=== PATIENT | female | born 1955 | race Caucasian/White ===

== ENCOUNTER → 2017-06-17 10:00 | Outpatient (CLI) | payer OTHER, SELFPAY ==
--- NOTE | 2017-06-17 10:04 | RAD_ITS ---
STUDY: X-RAY - LEFT HAND, ATTENTION FOURTH FINGER REASON FOR EXAM: Female, 62 years old. Pain following injury. TECHNIQUE: 3 view(s) of the finger were obtained. COMPARISON: None. FINDINGS: Normal metacarpal head. Normal metacarpophalangeal joint. Normal proximal phalanx. Normal middle phalanx. Normal distal phalanx. Normal proximal interphalangeal joint. Normal distal interphalangeal joint. RAD/Finger(s) Min 2 Views IMPRESSION: Normal x-ray examination of the finger. Electronically Signed: Harris Maritn MD at 10:36 EDT Tel [phone], Service support ,
== END ==
PROVIDERS: Visit Provider Physician Assistant Surgical
DX: S60.222A Contusion of left hand, initial encounter (principal); S60.00XA Contusion of unspecified finger without damage to nail, initial encounter
CPT/HCPCS: 73140

== ENCOUNTER 2019-01-18 08:51 | Emergency (ER) | payer OTHER, SELFPAY ==
[2018-04-03 10:09] VITALS: BMI 21.5
[2019-01-18 08:53] VITALS: BP 160/70; PULSE 79; RESP 16; TEMP 36.4; O2SAT 100; BMI 22.1
--- NOTE | 2019-01-18 09:05 | ED.DCSUM_ITS ---
- ER Visit Summary Date of Service: 01/18/19 Chief Complaint: Left thumb laceration History of Present Illness: The patient is a 64 F presenting with left thumb laceration. This occurred yesterday at work. She states she accidentally cut her left thumb with a knife. She was able to stop the bleeding. She is right- handed. Last tetanus is unknown. No other injuries. Physical Examination: Vitals are stable. Patient is afebrile. Alert no acute distress. HEENT exam is unremarkable. Neck is supple. Lungs are clear and equal bilaterally. Heart is regular rate and rhythm. Extremities 0.5 cm laceration distal left thumb, tendon function intact. Normal cap refill Skin is warm and dry. No focal neurologic deficit. Remainder of exam is unremarkable. Emergency Department Course and Treatment: Wound was irrigated. Closed with Dermabond. Dressing was applied. She was given tetanus IM. Advised to follow- up with corporate care as needed. Advised return to ED if worsening complaints. Disposition: Discharged home Impression: Left thumb laceration, laceration repair This note was generated with [employer] dictation software. It may contain incorrect words, spelling, and punctuation that were not noted in review of the chart prior to signing ED Disposition - Plan for ED Patient: Instructions: LACERATION, Hand Referrals: [facility] [GROUP OF PHYSICIANS] -
[2019-01-18] MEDS: Diphth,Pertuss(Acell),Tet Vac 0.5 ML Vial IM (09:20)
== END 2019-01-18 09:53 | disposition home or self-care (01) ==
LOC: ED 09:27
PROVIDERS: Emergency Provider Emergency Medicine
DX: S61.012A Laceration without foreign body of left thumb without damage to nail, initial encounter (principal); W26.0XXA Contact with knife, initial encounter; Y93.9 Activity, unspecified; Y92.9 Unspecified place or not applicable; Z23 Encounter for immunization
CPT/HCPCS: 12001; 90471; 90715; 99283

== ENCOUNTER 2020-04-20 22:00 | Emergency (ER) | payer OTHER, SELFPAY ==
[2019-01-24 12:51] VITALS: BMI 22.1
[2020-04-20 22:01] VITALS: BP 138/63; PULSE 81; RESP 16; TEMP 36.9; O2SAT 100; BMI 21.0
--- NOTE | 2020-04-20 22:15 | ED.VIS.INJ ---
History of Present Illness Chief Complaint: Upper Extremity Injury Informant: Patient Onset: Hours Mechanism/Context: Blunt Injury, Fall Quality of Pain: Dull, Aching, Throbbing Location: Right shoulder Current Severity: Mild Maximum Severity: Severe Worsened by: Any attempted movement Relieved by: Minimal if patient has right upper extremity adducted and internally rotate Associated Symptoms: Loss of function. Negative for: Parasthesias, Weakness, Inability to ambulate, Loss of consciousness Length of loss of consciousness: None Narrative: Patient is a 65-year-old [id number] woman who slipped on the ice. She landed on her right side. She presents because of pain to the right shoulder. She denies paresthesia, anesthesia medics. She denies head trauma. Denies neck pain. She denies chest pain. Denies shortness of breath. She denies back pain. She denies pain in her lower extremities. Tetanus Immunization: 5-10 years Prior similar symptoms: No Recent Illness/Hospitalization: No - Past Medical History (1) Contusion of left hand including fingers Status: Acute (2) Strain of right forearm Status: Acute Past Medical History - Allergies and Home Meds Allergies/Adverse Reactions: Allergies Penicillins Allergy (Verified 04/20/20 22:03) Rash prednisone Adverse Reaction (Verified 04/20/20 22:03) MUSCLE WEAKNESS, BRAIN FOG Primary Care Physician: Care Physician,No Primary [Primary Care Provider] - Prior records reviewed: Yes Surgical History: noncontributory Lives: Alone Smoking Status: Never smoker Alcohol: None Drugs: None Review of Systems General: Denies: Chills, Fever, Malaise Eyes: Denies: Visual changes - bilaterally, Blurred Vision - bilaterally ENT: Reports: - - Denies epistaxis. She denies drainage from her ears.. Denies: Bilateral ear pain, Rhinorrhea, Sore throat Cardiovascular: Denies: Chest pain, Palpitations Respiratory: Denies: Dyspnea, Dyspnea on exertion Gastrointestinal: Denies: Abdominal pain, Nausea, Vomiting Musculoskeletal: Reports: Swelling, Extremity Pain. Denies: Myalgias, Arthralgias, Neck pain, Back pain Skin: Reports: Abrasions. Denies: Rash, Abscess, Wounds Neurological: Denies: Headache, Weakness, Parasthesia Endocrine: Denies: Polyuria, Polydipsia Hematologic: Denies: Easy bruising, Easy bleeding Physical Exam Vital Signs/Narrative: Vital Signs Temp Pulse Resp BP Pulse Ox 04/20/20 22:01 98.5 F 81 16 138/63 H 100 Inital Vital Signs reviewed: Yes General: Well nourished, Well developed Head: Normocephalic, Atraumatic, - - There is no evidence of basilar skull fracture, clinically Eyes: Perrl, EOMI, - - There is no subconjunctival hemorrhage.. Negative for: Pale conjunctiva, Scleral icterus ENT: TM's clear, No hemotympanum or drainage, No trauma. Negative for: Nasal septal hematoma Neck: Nontender, Full ROM. Negative for: Spinal Tenderness, Paraspinal Tenderness Cardiovascular: Regular rate, Regular rhythm, No murmurs Respiratory: No distress, CTA bilaterally, Chest nontender Back: Nontender Extremeties: Axillary, median, radial ulnar function intact. There is pain ovation over the proximal humerus. There is no pain ovation over the lateral medial epicondyles has no pain the patient over the radial head. Is no pain the patient over the electron process. There is no pain the patient with distal radius or ulna, carpal bones, metacarpal bones or phalanges. There is no evidence of trauma to the hand. Skin: Normal color, Trauma - Abrasion proximal lateral right shoulder, - Neurological: Alert, Oriented x3, Cranial nerves II-XII grossly intact, Normal Strength, Normal Sensation Psychological: Normal affect - Glascow Coma Scale Eye Opening: Spontaneous Motor: Obeys Commands Verbal: Oriented Coma Scale Total: 15 Diagnostic/Tx/Re-eval View x-ray of the left shoulder was performed interpreted by me as negative for any osseous structures. There is no evidence of subluxation or dislocation. Impressions Shoulder X-Ray 04/20/20 22:25 IMPRESSION: Degenerative changes without acute osseous abnormality. at 2244 Reported and signed by: Sabrina Villagran MD Electronically Signed: Sabrnia Villagran MD at 22:44 EST Tel , Service support , 04/20/20 22:25 Xray Shoulder [Shoulder min 2 Views] [RAD] Stat Laboratory Results 04/20/20 22:50 WBC 6.9 RBC 4.58 Hgb 13.6 Hct 41.1 MCV 89.7 MCH 29.7 MCHC 33.1 RDW Std Deviation 41.4 RDW Coeff of Daniel 12.6 Plt Count 236 MPV 10.4 Immature Gran % (Auto) 0.400 Neut % (Auto) 78.6 H Lymph % (Auto) 12.7 L [place] % (Auto) 5.7 Eos % (Auto) 2.2 Baso % (Auto) 0.4 Absolute Neuts (auto) 5.4 Absolute Lymphs (auto) 0.87 Nucleated RBC % 0 The count is normal. Will discharge with sling and swath and follow-up with Dr. Brandon Mayes - Medical Decision Making She was medicated with oral opiate analgesic and x-ray was obtained to rule out fracture versus contusion. In light of patient's history, physical findings suspect she has a proximal humeral fracture. Cannot rule out rotator cuff injury. Patient has what appears to be petechiae. Will obtain CBC to assess platelet count. ED Disposition - Plan for ED Patient: Disposition: Home or Assisted Living Diagnosis: Traumatic complete tear of right rotator cuff Instructions: ED Rotator Cuff Tear Prescriptions: Hydrocodone Bitart/Apap 5-325 [[place] 5MG-325MG] 1 tablet PO Q6H PRN PRN 3 Days #10 tablet PRN Reason: Pain Transmission Status: Sent to [id number] Referrals: Care Physician,No Primary [Primary Care Provider] - Brandon Mayes DO [STAFF PHYSICIAN] - 3-5 Days
--- NOTE | 2020-04-20 22:25 | RAD_ITS ---
HISTORY: PAIN S/P FALL ADDITIONAL HISTORY: None provided. EXAMINATION/TECHNIQUE: XR Shoulder Min 2 Views Right Number of images including paperwork: 4 COMPARISON: None FINDINGS: BONES: No acute fracture. Mineralization appears decreased. JOINTS: No subluxation. Mild degenerative changes of the acromioclavicular and glenohumeral joints. SOFT TISSUES: No distinct foreign body. RAD/Shoulder min 2 Views IMPRESSION: Degenerative changes without acute osseous abnormality. at 2244 Reported and signed by: Sabrina Villagran MD Electronically Signed: Sabrina Villagran MD at 22:44 EST Tel , Service support ,
[2020-04-20] MEDS: HYDROcodone Bitartrate/Apap 5/325 Tablet PO (22:45)
[2020-04-20 23:11] LABS: Absolute Lymphocyte Count 0.87 X10^3/uL (0.83-4.51); Absolute Neutrophil Count 5.4 X10^3/uL (2.0-7.7); Basophil# 0.03 X10^3/uL; Basophil% 0.4 % (0-1); Eosinophil# 0.15 X10^3/uL; Eosinophils% 2.2 % (0-5); Hematocrit 41.1 % (37-47); Hemoglobin 13.6 g/dL (12.0-15.0); Lymphocyte # 0.87 X10^3/ul (4.0); Lymphocyte % 12.7 % (19-41); Mean Corp Hgb Conc 33.1 g/dL (32-36); Mean Corpuscular Hgb 29.7 pg (27.0-32.0); Mean Corpuscular Volume 89.7 fL (81-99); Mean Platelet Vol. 10.4 fl (6.2-12.0); Monocyte# 0.39 X10^3/uL; Monocyte% 5.7 % (0-10); NRBC Flagged by Analyzer 0 % (0-5); Neutrophil # 5.39 X10^3/uL (2.7-7.7); Neutrophil % 78.6 % (47-70); Platelet Count 236 K/mm3 (150-450); RBC Distribution Width CV 12.6 % (11.6-14.6); RBC Distribution Width SD 41.4 fl (35.1-43.9); Red Blood Count 4.58 M/mm3 (4.2-5.4); White Blood Count 6.9 K/mm3 (4.4-11.0)
[2020-04-21 00:03] VITALS: PULSE 76; RESP 16; O2SAT 98
== END 2020-04-21 00:21 | disposition home or self-care (01) ==
PROVIDERS: Emergency Provider Emergency Medicine
DX: S46.011A Strain of muscle(s) and tendon(s) of the rotator cuff of right shoulder, initial encounter (principal); W00.0XXA Fall on same level due to ice and snow, initial encounter; Y93.89 Activity, other specified; Y92.89 Other specified places as the place of occurrence of the external cause; Y99.8 Other external cause status
CPT/HCPCS: 73030; 85025; 99284

== ENCOUNTER 2020-06-03 14:00 | Outpatient (RCR) | payer OTHER, SELFPAY ==
--- NOTE | 2020-04-29 14:44 | HP.PTEVAL_ITS ---
Patient's Visit Information NILO JOE is a 65 year old F referred to Physical Therapy by Dr. Brandon Mayes DO with a diagnosis of . Date of Evaluation: 04/29/20 Physical Therapist: Jonathan Parsons, PT, Cert MDT, OCS - Visit Plan Frequency: 1-2x /Week Duration: 4 Weeks Plan: RTD FOR MRI WHICH IS SCHEDULED. PT INTERVENTIONS ROM/AAROM/PROM,STRENGTHENING SHOULDER [place] ,MODALTIES - Subjective This 65 y/o female presents to physical therapy with right shoulder contusion.Patient fell Apr 20 on ice landed on right shoulder. Patient went to ER [facility] did x-rays -. Patient seen Dr Mayes negative fracture ,possible thinks RTC tear and wants to do MRI which is scheduled May 05 . Patient location of pain lateral deltoid . Patient was provided sling for comfort, Patient is unable to raise arm [place] impairs self hygine housework tasks and ADL's. Patient denies parathesia/tingling. Pateint has difficukty sleeping. Patient right shoulder pain affects housework tasks ,ADLS' . Pateint shoulder pain affexts QOL. SOCAIL: . VOCATION: [employer] - Pain Right Shoulder Pain Intensity (Out of 10): 5 Pain Intensity Range: 10 - Objective POSTURE: rounded shoulders head foward. PALAPTION: unremarkable. NEURO: intac. AROM: UNABLE SHOULDER ,BICEPS /TRIPS/WRIST WFL. PROM: shoulder flexion 150,abduction 150 degrees,ER 80 degrees pain. MMT: infraspinatous 2/5,supraspinatous 0/5,deltoid 0/5 - Special Tests R Shoulder External Rotation Lag Test - RC Tear: Positive R Shoulder Supine Impingement Test - RC Tear: Positive R Shoulder Lift Off Test - Subscapular Tear: Negative R Shoulder Drop Sign - IS Test: Positive R Shoulder Empty Can - SS: Positive R Shoulder Belly Press - SupScap: Positive - Goals Goal 1:: I with hep Goal Time Frame: 4-6 Weeks Goal 2:: Patient decrease by 40 % or > to improve function Goal Time Frame: 4-6 Weeks Goal 3:: Patient to imorove dash by 5 points or > to improve QOL Goal Time Frame: 4-6 Weeks - Rehabilitation Potential Physical Therapy Diagnosis: This patient appears to have tear of RTC with poor ROM,poor strength RTC with pain impair function plans for MRI Rehabilitation Potential: Fair - Anticipated Interventions Patient/Client Instruction: Educate patient on: Condition, Plan of Care For the Purpose of:: To decrease pain, To increase ROM, To improve muscle performance and motor function, To improve ability to perform ADL's, To increase tolerance to activity/condition/position, To improve ability of physical actions for home/community/work/leisure, To improve health of tissue, To decrease soft tissue restriction, To improve ability to perform tasks related to life management Therapeutic Exercise to Include: Strength training, Passive ROM, Active ROM Comment: SHOULDER For the Purpose of:: To decrease pain, To improve muscle performance and motor function, To improve ability to perform ADL's, To increase tolerance to activity/condition/position, To improve ability of physical actions for home/community/work/leisure, To improve health of tissue, To decrease soft tissue restriction, To reduce risk of recurrence, To improve ability to perform tasks related to life management TENS: Yes IF ES: Yes Cryotherapy (ice pack, ice massage): Yes Thermo therapy (hot pack): Yes Ultrasound (thermal/non thermal): Yes For the Purpose of:: To decrease pain, To increase ROM, To improve nutrient delivery to tissue, To increase oxygenation perfusion, To improve health of tissue, To decrease soft tissue restriction Thank you for the opportunity to evaluate your patient. For Medicare and Medicare HMO plans, please review the plan of care and approve it. It will need to be FAXED BACK to us at [phone] for Medicare purposes. For Medicare only, by signing this I certify the plan of care. Please let me know if there are questions or concerns regarding this plan of care. Physician Signature: Date:
--- NOTE | 2020-06-03 14:36 | HP.PTDCSUM ---
It has been my pleasure to treat NILO JOE referred by Dr. Brandon Mayes DO, with the diagnosis of for a total of 7 visit(s). Discharge Date: 06/03/20 Please see the following information for a summary of their discharge status. Subjective: Doing well able to do ,most ADLS' and housework tasks Right Shoulder Pain Intensity (Out of 10): 0 % Improvement: 70 Objective/Function: AROM: 140 degrees for flexion/abduction ,ER 90. MMT: supraspinatous 4-/5,subscapalaris 4/5,infraspinatous 3/5,deltoid 3+/5. - drop arm Goal 1:: I with hep Goal Progress: Goal Met Goal 2:: Patient decrease by 40 % or > to improve function Goal Progress: Goal Met Goal 3:: Patient to imorove dash by 5 points or > to improve QOL Goal Progress: Goal Met Plan: D/C TO [facility] Discharge Comments: [facility] If there are questions or concerns regarding this patient's physical therapy, please feel free to call me at [phone]. Thank you for the referral of this patient. Sincerely, Jonathan Parsons, PT, Cert MDT, OCS
== END 2020-06-03 19:00 | disposition home or self-care (01) ==
LOC: PT 14:00
PROVIDERS: Referring Provider Orthopaedic Surgery; Visit Provider Orthopaedic Surgery
DX: S40.011D Contusion of right shoulder, subsequent encounter (principal)
CPT/HCPCS: 97014; 97110; 97162; 97530; G0283

== ENCOUNTER 2024-03-13 08:52 | Emergency (ER) | payer MEDICARE, OTHER, SELFPAY ==
[2024-03-13 08:53] VITALS: BP 152/63; PULSE 107; RESP 16; TEMP 37.9; O2SAT 98; BMI 24.5
[2024-03-13 08:59] VITALS: BP 152/63; PULSE 107; RESP 16; TEMP 37.9; O2SAT 98
--- NOTE | 2024-03-13 09:11 | EX.ED.DYSGE1 ---
HPI History of Present Illness Chief Complaint: Fever Narrative Narrative: Chief complaint and HPI: Flulike symptoms. 69-year-old female with no significant past medical history presents for evaluation of flulike symptoms. Onset of symptoms Tuesday. Patient's symptoms consist of fever, body aches, dry cough, nausea, vomiting, diarrhea, nasal congestion. She denies any chest pain, shortness of breath, abdominal pain, dysuria, hematuria. Patient states she has been taking Tylenol and ibuprofen as needed for fevers. She states the last time she took Tylenol was 1 AM. Due to her symptoms she has had little p.o. intake. Denies any sick contacts that she knows of. Review of systems: See HPI Medications: As listed on the chart Allergies: As listed on the chart PFSH: Per chart Vital signs: As listed on the chart. Reviewed. Physical exam: Gen: A&O x3, NAD Head: Normocephalic, atraumatic Eyes: No sclera icterus, conjunctiva clear, PERRL, EOMI ENT: Dry mucous membranes Neck: Trachea midline, No JVD, no meningismus CV: Tachycardic, regular rhythm, no murmurs, no peripheral edema Resp: Lungs CTA BL, no w/r/c, + dry cough GI: Abd soft, non-distended, non-tender, no r/r/g Musc: Full ROM, no deformity Skin: Warm, dry Neuro: Alert, oriented, grossly intact, sensation intact Psych: Cooperative, appropriate mood and affect [facility] Medical History (Updated 03/13/24 @ 11:[address] Gerard Eisenberg, DO) Pain in left acromioclavicular joint Home Medications ?Medication ?Instructions ?Recorded ?Last Taken ?Type NK 03/13/24 Unknown History ondansetron 4 mg disintegrating 4 mg PO Q8H PRN PRN Nausea #10 tabs 03/13/24 Unknown Rx tablet Allergy/AdvReac Type Severity Reaction Status Date / Time Penicillins Allergy Rash Verified 03/13/24 08:53 prednisone AdvReac MUSCLE Verified 03/13/24 08:53 WEAKNESS, BRAIN FOG Family History (Updated 01/24/19 @ 12:44 by Radha Ann) Father Cancer Mother Cancer Surgical History History of appendectomy Hx of hysterectomy Hx of knee surgery Social History (Updated 01/24/19 @ 13:52 by Gunner JAIMES, PA) Smoking Status: Never smoker alcohol intake: never EXAM Physical Exam Const Vital Signs: 03/13/24 08:53 03/13/24 08:59 03/13/24 09:01 Temperature 100.3 F H 100.3 F H Temperature Source Oral Oral Pulse Rate 107 H 107 H Respiratory Rate 16 16 Respiratory Pattern Normal Blood Pressure 152/63 H 152/63 H Blood Pressure Mean 92 92 Pulse Ox 98 98 Oxygen Delivery Method Room Air Room Air 03/13/24 09:59 03/13/24 11:14 Temperature 100.0 F H 99.5 F H Temperature Source Oral Oral Pulse Rate 93 98 Respiratory Rate 20 H 22 H Respiratory Pattern Blood Pressure 130/64 H 117/62 Blood Pressure Mean 86 80 Pulse Ox 94 94 Oxygen Delivery Method Room Air Room Air MDM MDM MDM Narrative Medical decision making narrative: 69-year-old female with no significant past medical history presents for evaluation of flulike symptoms. Differential diagnosis includes but is not limited to influenza, COVID-19, viral illness, pneumonia, electrolyte abnormality. On presentation patient is mildly hypertensive, mildly tachycardic, and elevated temperature at 100.3. I suspect her tachycardia is secondary to her symptoms as well as almost fever. Toradol, Zofran, NS bolus ordered for symptoms. Basic labs ordered including chest x-ray and COVID, flu, RSV testing. CBC without leukocytosis or anemia. BNP shows baseline renal insufficiency. Chest x-ray was reviewed see below. On reevaluation, patient states her symptoms have improved. She is able to tolerate p.o. intake without any vomiting. COVID, flu, RSV positive for influenza A. Patient is outside the Tamiflu window. Patient stable to discharge home. Follow-up with PCP. Okay for OTC medication for symptom control. Will give a prescription for Zofran as needed for nausea. Return precautions explained. She confirmed understanding of the plan. Diagnostic: Interpreted by me/EM physician: Chest x-ray without pneumonia, effusion, cardiomegaly, pneumothorax Impression: 1. Influenza A 2. Chronic Renal insufficiency Lab Data Labs: Laboratory Results - last 24 hr 03/13/24 09:40 WBC 5.9 RBC 4.63 Hgb 13.6 Hct 40.6 MCV 87.7 MCH 29.4 MCHC 33.5 RDW Std Deviation 42.1 RDW Coeff of Daniel 13.2 Plt Count 237 MPV 10.1 Immature Gran % (Auto) 0.200 Neut % (Auto) 89.5 H Lymph % (Auto) 3.4 L [place] % (Auto) 6.3 Eos % (Auto) 0.3 Baso % (Auto) 0.3 Absolute Neuts (auto) 5.3 Absolute Lymphs (auto) 0.20 L Nucleated RBC % 0 Sodium 136 Potassium 3.8 Chloride 103 Carbon Dioxide 27.0 Anion Gap 7 BUN 13 Creatinine 1.06 H Estim Creat Clear Calc 43.64 Est GFR (MDRD) Af Amer 66 Est GFR (MDRD) Non-Af 55 L BUN/Creatinine Ratio 12.3 Glucose 142 H Calcium 8.5 Radiography Diagnostic Testing: Clinical Impression(s) from Imaging Studies Chest X-Ray 03/13/24 09:54 IMPRESSION: No acute cardiopulmonary disease. Electronically Signed: Vasu Pierre MD at 10:11 EST , Discharge Plan Triage Chief Complaint: Fever ED Provider: Gerard Eisenberg Dx/Rx/DC Orders Clinical Impression: Influenza A Instructions: ED Influenza (Adult) Prescriptions: New ondansetron 4 mg tablet,disintegrating 4 mg PO Q8H PRN PRN (Reason: Nausea) Qty: 10 0RF No Action NK Primary Care Provider: Care Physician,No Primary Referrals: Dimitris Bethea MD [Med Staff - Active Staff] - 3-5 Days Care Physician,No Primary [Primary Care Provider] - Activity Restrictions/Additional Instructions: Follow-up with your primary care for patient. If you do not have 1 follow-up with the 1 provided above. You received Toradol here in the emergency department no ibuprofen for 8 hours. Okay for Tylenol. Drink plenty of fluids. Return back to the ED if symptoms change or worsen. Print Language: [place] Disposition Disposition: Home, Self Care
[2024-03-13] MEDS: 0.9% Normal Saline (1000mL) 1,000 ML 1000 ML IV (09:46)
[2024-03-13] MEDS: Ondansetron 4 MG/2 ML Vial IV (09:47)
[2024-03-13] MEDS: Ketorolac 15 MG/ML Vial IV (09:47)
[2024-03-13 09:49] LABS: Absolute Neutrophil Count 5.3 X10^3/uL (2.0-7.7); Basophil# 0.02 X10^3/uL; Basophil% 0.3 % (0-1); Eosinophil# 0.02 X10^3/uL; Eosinophils% 0.3 % (0-5); Hematocrit 40.6 % (37-47); Hemoglobin 13.6 g/dL (12.0-15.0); Lymphocyte % 3.4 % (19-41); Mean Corp Hgb Conc 33.5 g/dL (32-36); Mean Corpuscular Hgb 29.4 pg (27.0-32.0); Mean Corpuscular Volume 87.7 fL (81-99); Mean Platelet Vol. 10.1 fl (6.2-12.0); Monocyte# 0.37 X10^3/uL; Monocyte% 6.3 % (0-10); NRBC Flagged by Analyzer 0 % (0-5); Neutrophil # 5.27 X10^3/uL (2.7-7.7); Neutrophil % 89.5 % (47-70); POSITIVE DIFFERENTIAL YES; Platelet Count 237 K/mm3 (150-450); RBC Distribution Width CV 13.2 % (11.6-14.6); RBC Distribution Width SD 42.1 fl (35.1-43.9); Red Blood Count 4.63 M/mm3 (4.2-5.4); White Blood Count 5.9 K/mm3 (4.4-11.0)
--- NOTE | 2024-03-13 09:54 | RAD_ITS ---
EXAM: XR CHEST, 2 VIEWS CLINICAL INDICATION: Cough TECHNIQUE: Frontal and lateral views of the chest. COMPARISON: No relevant prior studies available. FINDINGS: LUNGS AND PLEURAL SPACES: Normal. No consolidation or edema. No pneumothorax. No effusion. HEART: Normal heart size. MEDIASTINUM: No mediastinal or hilar mass. BONES/JOINTS: No acute abnormality. RAD/Chest PA and Lateral IMPRESSION: No acute cardiopulmonary disease. Electronically Signed: Vasu Pierre MD at 10:11 [facility] ,
[2024-03-13 09:59] VITALS: BP 130/64; PULSE 93; RESP 20; TEMP 37.8; O2SAT 94
[2024-03-13 10:01] LABS: Anion Gap 7 (5-15); BUN 13 mg/dL (7-18); BUN/Creat Ratio 12.3 RATIO (10-20); Calcium,Total 8.5 mg/dL (8.5-10.1); Chloride 103 mmol/L (98-107); Creatinine, Serum 1.06 mg/dL (0.55-1.02); EST Glomerular Filtration Rate 55 mL/min (>60); Est Glom Filt Rate - Afr Amer 66 mL/min (>60); Estimated Creatinine Clearance 43.64 ml/min; Glucose 142 mg/dL (74-106); Potassium 3.8 mmol/L (3.5-5.1); Sodium Level 136 mmol/L (136-145)
[2024-03-13 11:14] VITALS: BP 117/62; PULSE 98; RESP 22; TEMP 37.5; O2SAT 94
--- NOTE | 2024-03-13 12:01 | ED.RN ---
called Jenna patel-
== END 2024-03-13 12:02 | disposition home or self-care (01) ==
PROVIDERS: Emergency Provider Surgery; Visit Provider Surgery
DX: J10.1 Influenza due to other identified influenza virus with other respiratory manifestations (principal); N18.9 Chronic kidney disease, unspecified; Z88.0 Allergy status to penicillin
CPT/HCPCS: 71046; 80048; 85025; 87631; 96361; 96374; 96375; 99285; J2405

== ENCOUNTER 2024-03-14 22:08 | Emergency (ER) | payer MEDICARE, OTHER, SELFPAY ==
[2024-03-14 22:09] VITALS: BP 136/84; PULSE 95; RESP 18; TEMP 37.1; O2SAT 97
--- NOTE | 2024-03-14 22:26 | EDS_ITS ---
HPI HPI - GI History of Present Illness Chief Complaint: Nausea/Vomiting Informant: patient Nausea/Vomiting/Emesis GI Symptom: Positive for Nausea and Vomiting Onset: Yesterday Quality: Positive for Nonbilious; Negative for Blood streaks, Coffee ground or Hematemesis Diarrhea/Melena/Hematochezia GI Symptom: Positive for Diarrhea; Negative for Melena or Hematochezia Associated Symptoms Associated Symptoms: Negative for Dysuria, Frequency or Hematuria Narrative Narrative: Patient presents with nausea, vomiting, and diarrhea that became worse today. Patient was seen here yesterday for similar symptoms. Patient was diagnosed with influenza. Patient was given a prescription for Zofran. Patient states she has been taking this as prescribed with no relief. Patient states she even doubled up on the medication with no improvement. Patient denies any hematemesis or coffee-ground emesis. Patient denies any melena or hematochezia. Patient denies any abdominal pain. Patient denies any urinary complaints. PFSH PFSH Medical History Pain in left acromioclavicular joint Home Medications ?Medication ?Instructions ?Recorded ?Last Taken ?Type ondansetron 4 mg disintegrating 4 mg PO Q8H PRN PRN Nausea #10 tabs 03/13/24 Unknown Rx tablet promethazine 25 mg rectal 25 mg RECTAL Q6H PRN PRN Nausea ##6 03/15/24 Unknown Rx suppository (Promethegan) Allergy/AdvReac Type Severity Reaction Status Date / Time Penicillins Allergy Rash Verified 03/14/24 22:09 prednisone AdvReac MUSCLE Verified 03/14/24 22:09 WEAKNESS, BRAIN FOG Family History (Updated 01/24/19 @ 12:44 by Radha Ann) Father Cancer Mother Cancer Surgical History History of appendectomy Hx of hysterectomy Hx of knee surgery Social History Smoking Status: Never smoker alcohol intake: never ROS ROS ED Constitutional Constitutional ED: Denies chills or fever(s) Eyes Eyes: Denies blurry vision or change in vision ENT ENT ED: Denies rhinorrhea or sore throat Cardiovascular Cardiovascular: Denies chest pain or palpitations Respiratory/Chest Respiratory/Chest: Reports cough; Denies dyspnea Gastrointestinal Gastrointestinal: Reports melena, nausea and vomiting; Denies abdominal pain Genitourinary Genitourinary ED: Denies dysuria or hematuria Musculoskeletal Musculoskeletal: Denies back pain or neck pain Integumentary Denies abscess or rash Neurologic Neurologic: Denies headache(s) or weakness Allergic/Immunologic Allergic/Immunologic ED: Denies mouth swelling or urticaria EXAM Physical Exam Const Vital Signs: 03/14/24 22:09 03/15/24 00:08 Temperature 98.8 F Temperature Source Oral Pulse Rate 95 102 H Respiratory Rate 18 22 H Blood Pressure 136/84 H 137/65 H Blood Pressure Mean 101 89 Pulse Ox 97 93 Oxygen Delivery Method Room Air Room Air Positive well nourished and well developed General Appearance ED: well developed and NAD Neck supple and no JVD Resp normal respiratory effort and clear to auscultation bilaterally Cardio regular rate and regular rhythm GI non-tender Auscultation: hyperactive bowel sounds Palpation: soft Extremity full ROM General Extremety ED: Negative for edema or tenderness General Extremity: Negative for edema Neuro CN's II-XII intact bilaterally, moves all extremities and no sensory deficits noted Sensorium / Orientation: alert Motor Exam: strength 5/5 throughout Psych mental status grossly normal and thought process normal MDM MDM MDM Narrative Medical decision making narrative: Differential diagnosis includes gastroenteritis, dehydration, electrolyte abnormality, bowel obstruction, perforation, colitis, cholecystitis, cholelithiasis, and pancreatitis. CBC will be obtained to assess for leukocytosis and anemia. Comprehensive metabolic profile will be obtained to assess for electrolyte abnormality, renal function, and hepatic function. Lipase will be obtained to assess for pancreatitis. Urinalysis will be obtained to assess for urinary tract infection and hematuria. CT scan of the abdomen and pelvis will be obtained to assess for bowel obstruction, perforation, cholecystitis, cholelithiasis, and colitis. Lab Data Attestation: I reviewed the patient's lab results. Lab results narrative: CBC was reviewed. White blood cell count was slightly low at 2.6. The remainder was within normal limits. Comprehensive metabolic profile was reviewed and was essentially within normal limits. Lipase was reviewed and was normal at 42. Urinalysis was reviewed. There is no evidence of urinary tract infection. Occult blood was 25. There are 10-25 red blood cells noted. Labs: Laboratory Results - last 24 hr 03/14/24 03/14/24 22:27 23:50 WBC 2.6 L RBC 4.46 Hgb 13.0 Hct 39.3 MCV 88.1 MCH 29.1 MCHC 33.1 RDW Std Deviation 43.2 RDW Coeff of Daniel 13.4 Plt Count 229 MPV 10.5 Immature Gran % (Auto) 0.400 Neut % (Auto) 65.0 Lymph % (Auto) 19.2 [place] % (Auto) 14.6 H Eos % (Auto) 0.4 Baso % (Auto) 0.4 Absolute Neuts (auto) 1.7 L Absolute Lymphs (auto) 0.50 L Nucleated RBC % 0 Differential Comment SEE COMMENT Diff Path Review May foll Platelet Estimate ADEQUATE RBC Morphology NORM C+C Anisocytosis RARE Sodium 135 L Potassium 3.6 Chloride 103 Carbon Dioxide 24.0 Anion Gap 7 BUN 15 Creatinine 1.06 H Est GFR (MDRD) Af Amer 66 Est GFR (MDRD) Non-Af 55 L BUN/Creatinine Ratio 14.2 Glucose 99 Calcium 8.3 L Total Bilirubin 0.40 AST 40 H ALT 47 Alkaline Phosphatase 74 Total Protein 7.2 Albumin 3.4 Globulin 3.8 Albumin/Globulin Ratio 0.9 Lipase 42 Urine Color Yellow Urine Clarity Clear Urine pH 6.0 Ur Specific Wiggins 1.010 Urine Protein Negative Urine Glucose (UA) NEGATIVE Urine Ketones 50 H Urine Occult Blood 25 H Urine Nitrite Negative Urine Bilirubin Negative Urine Urobilinogen Normal Ur Leukocyte Esterase Negative Urine RBC 10-25 SEEN Urine WBC 0-5 SEEN Ur Squamous Epith Cells 0-5 SEEN Urine Bacteria RARE Fine Granular Casts 0-5 SEEN Urine Mucus 0 SEEN Radiography Diagnostic Testing: Clinical Impression(s) from Imaging Studies Abdomen/Pelvis CT 03/14/24 22:41 IMPRESSION: 1. Mildly enlarged and fatty liver. 2. Previous cholecystectomy and hysterectomy. 3. No acute intra-abdominal abnormality. Electronically Signed: Zach Escalante MD at 23:22 EST , CT scan of the abdomen and pelvis was obtained. There is a mildly enlarged fatty liver. There is no acute abnormality noted. This was interpreted by the radiologist and was also independently reviewed by myself. Treatment and Re-Evaluation :: Patient was given IV fluids. Patient was given Zofran. Patient had no improvement with this. Patient was given a dose of Phenergan. Patient was able to tolerate p.o. fluids after this. Patient was given a prescription for Phenergan suppositories. Patient was instructed to start with liquids and advance as tolerated. Patient was instructed to follow-up with her primary care physician in 5 to 7 days. Patient understood and was agreeable with the plan. All questions were answered. Discharge Plan Triage Chief Complaint: Nausea/Vomiting ED Provider: Petr Medina Dx/Rx/DC Orders Clinical Impression: Influenza A, Nausea and vomiting Instructions: ED Influenza (Adult), ED Vomiting (Adult) Prescriptions: New promethazine [Promethegan] 25 mg suppository 25 mg RECTAL Q6H PRN PRN (Reason: Nausea) Qty: 6 0RF No Action ondansetron 4 mg tablet,disintegrating 4 mg PO Q8H PRN PRN (Reason: Nausea) Qty: 10 0RF Primary Care Provider: Care Physician,No Primary Referrals: Dimitris Bethea MD [Med Staff - Active Staff] - 5-7 Days Care Physician,No Primary [Primary Care Provider] - Print Language: Ukrainian Disposition Disposition: Home, Self Care
--- NOTE | 2024-03-14 22:41 | CT_ITS ---
EXAM: CT ABDOMEN AND PELVIS WITH INTRAVENOUS CONTRAST CLINICAL INDICATION: Nausea, vomiting, diarrhea TECHNIQUE: Helically acquired images were obtained of the abdomen and pelvis with intravenous contrast. This CT exam was performed using one or more of the following dose reduction techniques: automated exposure control, adjustment of the mA and/or kV according to patient size, and/or use of iterative reconstruction technique. CONTRAST: IV 100mL Isovue-370 RADIATION DOSE: Total DLP: 514.20 mGy-cm. COMPARISON: No relevant prior studies available. FINDINGS: LOWER THORAX: Visualized lung bases are clear. No significant pericardial effusion. No hiatal hernia. ABDOMEN: LIVER: Moderate fatty infiltration of the liver. Right hepatic lobe measures 18.6 cm in cephalocaudal dimension. Portal and hepatic veins enhance normally. GALLBLADDER AND BILE DUCTS: Unremarkable. No calcified gallstones. No gallbladder distention or wall edema. No intra- or extrahepatic biliary ductal dilation. PANCREAS: Unremarkable. No focal cystic or solid mass. SPLEEN: Unremarkable. Normal size without focal cystic or solid mass. ADRENALS: Unremarkable. No nodules. KIDNEYS AND URETERS: Unremarkable. Normal renal size and position. No renal or obstructing ureteral stones. Symmetric nephrograms. STOMACH AND BOWEL: No stomach or bowel distention. No focal inflammatory change. PELVIS: APPENDIX: Previous appendectomy. BLADDER: Partially distended urinary bladder is unremarkable. REPRODUCTIVE: Absent uterus. Within the anterior left pelvis abutting the distal descending to proximal sigmoid colon is a 2.3 x 1.3 cm ovoid thin-walled unilocular cystic lesion, consistent with a benign paraovarian cyst which requires no follow-up. ABDOMEN and PELVIS: INTRAPERITONEAL SPACE: Unremarkable. No ascites or other fluid collection. No free air. BONES/JOINTS: Large osteophytes noted about the lower thoracic disc spaces. Severe degenerative disc space narrowing noted at the L4/5 level with endplate sclerosis and marginal osteophytes. Less severe degenerative narrowing noted at the L5/S1 level; asymmetric postero-lateral osteophytes and facet hypertrophy narrow the inferior left neural foramen at L5/S1. Broad-based annular bulging noted at L4/5, with asymmetric posterolateral osteophytes narrowing the inferior right neural foramen at L4/5. 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 No suspicious lytic or blastic abnormality. SOFT TISSUES: Small fat-filled umbilical hernia. VASCULATURE: Normal caliber abdominal aorta. LYMPH NODES: Unremarkable. No enlarged lymph nodes. CT/Abdomen/Pelvis W IV Cont ONLY IMPRESSION: 1. Mildly enlarged and fatty liver. 2. Previous cholecystectomy and hysterectomy. 3. No acute intra-abdominal abnormality. Electronically Signed: Zach Escalante MD at 23:22 EST ,
[2024-03-14] MEDS: Ondansetron 4 MG/2 ML Vial IV (22:45)
[2024-03-14 22:55] LABS: Absolute Neutrophil Count 1.7 X10^3/uL (2.0-7.7); Basophil# 0.01 X10^3/uL; Basophil% 0.4 % (0-1); Eosinophil# 0.01 X10^3/uL; Eosinophils% 0.4 % (0-5); Hematocrit 39.3 % (37-47); Lymphocyte % 19.2 % (19-41); Mean Corp Hgb Conc 33.1 g/dL (32-36); Mean Corpuscular Hgb 29.1 pg (27.0-32.0); Mean Corpuscular Volume 88.1 fL (81-99); Mean Platelet Vol. 10.5 fl (6.2-12.0); Monocyte# 0.38 X10^3/uL; Monocyte% 14.6 % (0-10); NRBC Flagged by Analyzer 0 % (0-5); Neutrophil # 1.69 X10^3/uL (2.7-7.7); POSITIVE DIFFERENTIAL YES; Platelet Count 229 K/mm3 (150-450); RBC Distribution Width CV 13.4 % (11.6-14.6); RBC Distribution Width SD 43.2 fl (35.1-43.9); Red Blood Count 4.46 M/mm3 (4.2-5.4); White Blood Count 2.6 K/mm3 (4.4-11.0)
[2024-03-14 22:58] LABS: Differential Indicated SCAN CRITERIA MET
[2024-03-14 23:12] LABS: ALB/GLOB Ratio 0.9 RATIO (0.9-2.4); AST(SGOT) 40 U/L (15-37); Alanine Aminotransfer ALT/SGPT 47 U/L (13-56); Albumin, Serum 3.4 g/dL (3.2-5.0); Alkaline Phosphatase 74 U/L (45-117); Anion Gap 7 (5-15); BUN 15 mg/dL (7-18); BUN/Creat Ratio 14.2 RATIO (10-20); Calcium,Total 8.3 mg/dL (8.5-10.1); Chloride 103 mmol/L (98-107); Creatinine, Serum 1.06 mg/dL (0.55-1.02); EST Glomerular Filtration Rate 55 mL/min (>60); Est Glom Filt Rate - Afr Amer 66 mL/min (>60); Globulin 3.8 g/dL (2.2-4.2); Glucose 99 mg/dL (74-106); Lipase 42 U/L (13-75); Potassium 3.6 mmol/L (3.5-5.1); Protein, Total 7.2 g/dL (6.4-8.2); Sodium Level 135 mmol/L (136-145)
[2024-03-14 23:24] LABS: Anisocytosis RARE; Platelet Estimate ADEQUATE (ADEQ); Red Cell Morphology NORM C+C NORMAL (NORM C&C)
[2024-03-14 23:58] LABS: Mucous, Urine 0 SEEN /hpf (<or=2+)
[2024-03-15 00:04] VITALS: BMI 24.0
[2024-03-15 00:08] VITALS: BP 137/65; PULSE 102; RESP 22; O2SAT 93
[2024-03-15] MEDS: proMETHazine 25 MG/ML Syringe 6.25 MG IM (00:12)
[2024-03-15 00:34] LABS: Color, Urine Yellow (Yellow); Glucose, Dipstick NEGATIVE (Normal); Ketone-Dipstick 50 mg/dl (Negative); Leukocyte Esterase-Dipstick Negative /ul (Negative); Nitrite-Dipstick Negative (Negative); Occult Blood-Urine 25 /ul (Negative); Protein-Dipstick Negative (Negative); Red Blood Cells-Urine 10-25 SEEN /hpf (0-5); Squamous Epithelial Cells - UA 0-5 SEEN /hpf (5-10); Urine Bilirubin Dipstick Negative (Negative); Urine Clarity Clear (Clear); Urine Urobilinogen Normal (Normal); White Blood Cells 0-5 SEEN /hpf (0-5)
[2024-03-15 00:35] LABS: Bacteria RARE /hpf (None Seen); Fine Granular Cast- Urine 0-5 SEEN /lpf (0-5)
[2024-03-15 01:55] VITALS: BP 135/72; PULSE 86; RESP 17; O2SAT 98
[2024-03-15 02:18] VITALS: BP 135/72; PULSE 86; RESP 17; TEMP 36.8; O2SAT 98
--- NOTE | 2024-03-15 09:39 | ED.RN ---
Pt called and wanted Rx moved to [facility] retail pharmacy instead of [facility]. [facility] won't have Rx available until after 3pm tomorrow.
[2024-03-15 13:48] LABS: Pathologist Review Reviewed
== END 2024-03-15 02:19 | disposition home or self-care (01) ==
PROVIDERS: Emergency Provider Emergency Medicine; Visit Provider Emergency Medicine
DX: J10.1 Influenza due to other identified influenza virus with other respiratory manifestations (principal); R11.2 Nausea with vomiting, unspecified; Z88.0 Allergy status to penicillin
CPT/HCPCS: 74177; 80053; 81001; 83690; 85025; 96372; 96374; 99283; Q9967; A4216; J2405

== ENCOUNTER → 2024-03-28 | Outpatient (CLI) | payer MEDICARE, OTHER, SELFPAY ==
[2024-03-28 19:08] LABS: ALB/GLOB Ratio 0.7 RATIO (0.9-2.4); AST(SGOT) 40 U/L (15-37); Alanine Aminotransfer ALT/SGPT 69 U/L (13-56); Alkaline Phosphatase 83 U/L (45-117); Anion Gap 8 (5-15); BUN 15 mg/dL (7-18); BUN/Creat Ratio 15.8 RATIO (10-20); Calcium,Total 8.9 mg/dL (8.5-10.1); Chloride 105 mmol/L (98-107); Creatinine, Serum 0.95 mg/dL (0.55-1.02); EST Glomerular Filtration Rate 62 mL/min (>60); Est Glom Filt Rate - Afr Amer 75 mL/min (>60); Globulin 4.4 g/dL (2.2-4.2); Glucose 95 mg/dL (74-106); Magnesium 2.2 mg/dL (1.6-2.6); Potassium 3.1 mmol/L (3.5-5.1); Protein, Total 7.4 g/dL (6.4-8.2); Sodium Level 140 mmol/L (136-145)
== END | disposition home or self-care (01) ==
LOC: MFPLAB 14:26
PROVIDERS: PCP Family Medicine; Referring Provider Family Medicine; Visit Provider Family Medicine
DX: A08.11 Acute gastroenteropathy due to Norwalk agent (principal)
CPT/HCPCS: 36415; 80053; 83735

== ENCOUNTER → 2024-04-19 | Outpatient (CLI) | payer MEDICARE, OTHER, SELFPAY ==
[2024-04-19 17:59] LABS: Anion Gap 9 (5-15); BUN 21 mg/dL (7-18); BUN/Creat Ratio 17.8 RATIO (10-20); Calcium,Total 9.2 mg/dL (8.5-10.1); Chloride 106 mmol/L (98-107); Cholesterol 147 mg/dL (200); Creatinine, Serum 1.18 mg/dL (0.55-1.02); EST Glomerular Filtration Rate 48 mL/min (>60); Est Glom Filt Rate - Afr Amer 59 mL/min (>60); Glucose 102 mg/dL (74-106); High Density Lipoprotein 52 mg/dL; Potassium 3.6 mmol/L (3.5-5.1); Sodium Level 140 mmol/L (136-145); Triglycerides 235 mg/dL; Very Low Density Lipoprotein 47 mg/dL (5-40)
== END | disposition home or self-care (01) ==
LOC: MFPLAB 15:07
PROVIDERS: PCP Family Medicine; Referring Provider Family Medicine; Visit Provider Family Medicine
DX: Z00.00 Encounter for general adult medical examination without abnormal findings (principal)
CPT/HCPCS: 36415; 80048; 80061

== ENCOUNTER 2024-07-25 07:33 | Day surgery (SDC) | payer MEDICARE, OTHER, SELFPAY ==
[2024-07-25] VITALS (8 sets, daily range): BP systolic 87–120; BP diastolic 47–70; PULSE 71–79; RESP 16–17; TEMP 36.4–36.6; O2SAT 98–99; BMI 21.5
--- NOTE | 2024-07-25 07:38 | H&P.OPEN ---
[facility] - General General Date of Service: 07/25/24 HPI Narrative NILO JOE, is a 69 F who presents for screening colonoscopy. Patient's last colonoscopy was in 2007 at [facility] by Dr. Hidalgo negative per patient. Patient's father was diagnosed with colon cancer age greater than 60?late 70s. Patient is on as needed aspirin. Patient has bowel movements daily denies any blood. Patient denies any chronic abdominal pain/nausea/vomiting/reflux. [facility] Medical History Wears glasses Post-menopausal Arthritis Restless legs History of IBS Heartburn Non-smoker Family history of colon cancer in father Pain in left acromioclavicular joint Home Medications ?Medication ?Instructions ?Recorded ?Last Taken ?Type aspirin 81 mg tablet,delayed 81 mg PO QDAY PRN pain 04/25/24 Unknown History release (Ecotrin Low Strength) Allergy/AdvReac Type Severity Reaction Status Date / Time Penicillins Allergy Rash Verified 07/25/24 07:47 prednisone AdvReac MUSCLE Verified 07/25/24 07:47 WEAKNESS, BRAIN FOG Family History Father Cancer Colon cancer Mother Cancer Surgical History Hx of right knee surgery Hx of colonoscopy History of appendectomy Hx of hysterectomy Social History household members: none current occupational status: employed Smoking Status: Never smoker alcohol intake: never substance use type: does not use Past Medical/Surgical History Planned Operation Planned Operative Procedure(s): CSCOPE OA Previous Hospitalizations/Surgeries HX Hospitalizations: Yes (02/2024 HAD NOROVIRUS AND FLU) Any Problems With Anesthesia: No You/Your Family Experience Fever (Hyperthermia) With Anes: No Cholinesterase deficiency: No Cardiovascular Hx Chest Pain within Last 2 months: No Hx of Irregular Heartbeat and/or Afib: No Hx Heart Attack: No Hx Congestive Heart Failure: No Hx Hypertension: No Hx Pacemaker: No Respiratory Hx Chronic Obstructive Pulmonary Disease (COPD): No Hx Asthma: No Hx Emphysema: No Hx Sleep Apnea: No Hx Respiratory Tract Infection/Cold (presently): No Do You Snore Loudly (louder than talking or can be heard): No Do You Often Feel Tired/ Fatigued/ Sleepy Dring Daytime?: No Has Anyone Observed You Stop Breathing During Sleep?: No Result (for STOP score): Negative Hx Smoking: No Smoking Status: Never smoker Gastrointestinal Hx Ulcer: No Neurological Hx Seizures: No Hx Head/Neck Injury: No Hx Headaches: No Hx Back Injury/Pain: No Does patient have nerve stimulator: No Blood Disorder Hx Anemia: No Reproduction : No Genitourinary Hx Dialysis: No Musculoskeletal Hx Arthritis: No Hx Rheumatoid Arthritis: No Endocrine Hx Diabetes: No Thyroid Disease: No Psycho/Social Hx Alcohol Use: No Hx Depression: No Hx Dementia: No Allergies Penicillins Allergy (Verified 07/25/24 07:47) Rash prednisone Adverse Reaction (Verified 07/25/24 07:47) MUSCLE WEAKNESS, BRAIN FOG Discharge Is Pt Admitted From a Intermediate, or a Retirement: No After D/C, Where Do you Plan to Go: Return Home Physical Exam Const alert, oriented x3 and no apparent distress HEENT normocephalic and head/scalp atraumatic Resp normal respiratory effort Cardio regular rate GI soft to palpation and non-tender; Negative for non-distended Palpation: Negative for guarding Extremity no clubbing, cyanosis or edema Skin no rashes or lesions noted Neuro CN's II-XII intact bilaterally Psych mental status grossly normal Assessment & Plan Assessment/Plan (1) Encounter for screening for malignant neoplasm of colon: Surgery Risks - Colonoscopy I discussed with the patient the risks of the procedure: Yes Risks Include but are not Limited To: Risks include but are not limited to: Bleeding, perforation requiring further surgery, inability to complete colonoscopy requiring barium enema.
[2024-07-25] MEDS: Lactated Ringers 1,000 ML 15 ML IV (08:05)
--- NOTE | 2024-07-25 08:14 | PCM.PRE.AN2 ---
ASA Classification* ASA Classification ASA Classification: 2 Assessment & Plan Anesthesia* Anesthesia Assessment Anesthesia Assessment: Discussed sedation and/or anesthesia options, risks, benefits, and alternatives with patient/parents/legal guardian/POA. Questions invited. The patient/parents/legal guardian/POA seems to understand and agrees to proceed with anesthesia plan. Reviewed the physical assessment, medical history, allergy history and patient home medications list prior to surgery/procedure/anesthetic and documented any changes. Performed airway and anesthesia risk assessments. Anesthesia Type Anesthesia Type: MAC History Source History Obtained from:: Patient and Chart Anesthesia Focused Assessment* Temperature: 97.8 F Pulse Rate: 77 Blood Pressure: 112/70 Respiratory Rate: 17 Pulse Ox: 99 Oxygen Delivery Method: Room Air Airway Assessment Mouth opens: >3 cm Mallampati Score: I Teeth Condition: Intact Neck Range of motion (ROM): Full ROM Focused Labs Anesthesia Preop lab: CBC WBC 2.6 K/mm3 (4.4-11.0) L 03/14/24 22:03/14/24 RBC 4.46 M/mm3 (4.2-5.4) 03/14/24 22:03/14/24 Hgb 13.0 g/dL (12.0-15.0) 03/14/24 22:27 03/14/24 Hct 39.3 % (37-47) 03/14/24 22:27 03/14/24 Plt Count 229 K/mm3 (150-450) 03/14/24 22:27 03/14/24 CHEMISTRY Potassium 3.6 mmol/L (3.5-5.1) 04/19/24 15:07 04/19/24 Sodium 140 mmol/L (136-145) 04/19/24 15:04/19/24 Magnesium 2.2 mg/dL (1.6-2.6) 03/28/24 14:27 03/28/24 BUN 21 mg/dL (7-18) H 04/19/24 15:07 04/19/24 Creatinine 1.18 mg/dL (0.55-1.02) H 04/19/24 15:07 04/19/24 Glucose 102 mg/dL (74-106) 04/19/24 15:07 04/19/24 COAG Pre-Assessment Diagnosis/Proposed Procedure Planned Operative Procedure(s): CSCOPE OA Anesthesia History 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 When Was Last Pacemaker Check QUESTION #4 FULL TEXT: You/Your Family Experience fever (hyperthermia) with Anesthesia Last Oral Intake Last Oral intake: Last Oral Intake NPO since 05:30 07/25/24 08:02 Meds taken in AM with sips of No 07/25/24 08:02 water? Meds patient instructed to take am of surgery Any additional information?: Yes NPO since: 05:30 (Patient finished prep at 5:30 AM.) Meds taken in AM with sips of water?: No PONV PONV - patient service technician pst: PONV - patient service technician pst Female Yes 07/20/24 12:41 HX of Motion Sickness No 07/20/24 12:41 HX of N/V After Surgery No 07/20/24 12:41 Non-Smoker Yes 07/20/24 12:41 Duration of Surgery greater No 07/20/24 12:41 than 60 minutes Number of Risk Factors 2 07/20/24 12:41 PONV Score Moderate Risk 07/20/24 12:41 Height & Weight Height & Weight: Anesthesia: Height & Weight Height 5 ft 3 in 07/25/24 08:02 Weight: 55.1 kg 07/25/24 08:02 Body Mass Index (BMI) 21.5 07/25/24 08:02 Respiratory Assessment Respiratory Assessment - patient service technician pst: Respiratory Tract Infection Hx - patient service technician pst Hx Respiratory Tract Infection No 07/25/24 07:39 STOP Sleep Apnea STOP Sleep Apnea - patient service technician pst: STOP Sleep Apnea - patient service technician pst Hx Hypertension No 07/25/24 07:39 Hx Sleep Apnea No 07/25/24 07:39 CPAP BIPAP Do you snore loudly (louder No 07/25/24 07:39 than talking or can be heard Do you often feel tired/ No 07/25/24 07:39 fatigued/ sleepy during daytime? Has anyone observed you stop No 07/25/24 07:39 breathing during sleep? STOP Results Negative 07/25/24 07:39 QUESTION #5 FULL TEXT : Do you snore loudly (louder than talking or can be heard through closed doors)? 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 Specify any problems Hx of Preganancy in last 3 No 07/20/24 12:41 Months Nurse Filling Out Transfusion DSCHRIBER 07/20/24 12:41 & Questions: Date: 07/20/24 07/20/24 12:41 Time: 12:42 07/20/24 12:41 Patient unable to answer at this time (ie. confused, unrespo /Reproduction History /Reproductive History - patient service technician pst: /Reproductive Hx- patient service technician pst Hx Now No 07/25/24 07:39 Gestational Age (in weeks): EDC: Hx Hx Para Hx Section SAB No 07/20/24 12:41 Active Medications Active Medications: Current Medications Generic Name Dose Route Start Last Admin Trade Name Freq PRN Reason Stop Dose Admin Lactated Ringer's 1,000 mls @ 15 mls/hr 07/25/24 08:00 07/25/24 08:05 IV 15 mls/hr .Q48H IRINA Administration PFSH Medical History Wears glasses Post-menopausal Arthritis Restless legs History of IBS Heartburn Non-smoker Family history of colon cancer in father Pain in left acromioclavicular joint Home Medications ?Medication ?Instructions ?Recorded ?Last Taken ?Type aspirin 81 mg tablet,delayed 81 mg PO QDAY PRN pain 04/25/24 Unknown History release (Ecotrin Low Strength) Allergy/AdvReac Type Severity Reaction Status Date / Time Penicillins Allergy Rash Verified 07/25/24 07:47 prednisone AdvReac MUSCLE Verified 07/25/24 07:47 WEAKNESS, BRAIN FOG Family History Father Cancer Colon cancer Mother Cancer Surgical History Hx of right knee surgery Hx of colonoscopy History of appendectomy Hx of hysterectomy Social History household members: none current occupational status: employed Smoking Status: Never smoker alcohol intake: never substance use type: does not use Review of Systems (Anesthesia) ROS Narrative System reviewed and no additional complaints, except as documented.
--- NOTE | 2024-07-25 10:29 | OP.CCLET_ITS ---
07/25/2024 Dimitris Bethea MD [address] [place] [address] Re : Colonoscopy procedure for Anne Ca Dear Dr. Bethea This procedure was performed on Thursday, July 25, 2024. My impressions and recommendations are as follows: Impressions : - The entire examined colon is normal on direct and retroflexion views. - Non-bleeding internal hemorrhoids. - No specimens collected. Recommendations : - Discharge patient to home. - Resume previous diet. - Continue present medications. - Repeat colonoscopy in 10 years for screening purposes. - depending on overall health at time of possible repeat My findings are described in the full procedure note, which is enclosed. If I can be of further assistance, please feel free to contact me at Doctor phone number(s): , Work: . Sincerely, MD Megan Barry MD 07/25/2024 10:28:45 AM This report has been signed electronically.
--- NOTE | 2024-07-25 10:29 | OP.COLON_ITS ---
Patient Name: nAne Ca Procedure Date: 07/25/2024 9:58 AM Date of : 1955 Age: 69 Procedure: Colonoscopy Indications: Screening for colorectal malignant neoplasm Providers: Megan Crisostomo MD Referring MD: Dimitris Bethea MD Medicines: Monitored Anesthesia Care Patient Profile: This is a 69 year old female. Last Colonoscopy: 2007. Complications: No immediate complications. Procedure: Pre-Anesthesia Assessment: - Prior to the procedure, a History and Physical was performed, and patient medications and allergies were reviewed. The patient's tolerance of previous anesthesia was also reviewed. The risks and benefits of the procedure and the sedation options and risks were discussed with the patient. All questions were answered, and informed consent was obtained. Prior Anticoagulants: The patient has taken no anticoagulant or antiplatelet agents. ASA Grade Assessment: Per anesthesia. After reviewing the risks and benefits, the patient was deemed in satisfactory condition to undergo the procedure. After I obtained informed consent, the scope was passed under direct vision. Throughout the procedure, the patient's blood pressure, pulse, and oxygen saturations were monitored continuously. The Colonoscope was introduced through the anus and advanced to the cecum, identified by the appendiceal orifice, ileocecal valve and palpation. The colonoscopy was performed without difficulty. The patient tolerated the procedure well. The quality of the bowel preparation was good. Scope In: 10:04:20 AM Scope Withdrawal Time 0 hours 9 minutes 11 seconds Scope Out: 10:22:17 AM Total Procedure Duration Time 0 hours 17 minutes 57 seconds Findings: The perianal and digital rectal examinations were normal. The entire examined colon appeared normal on direct and retroflexion views. Non-bleeding internal hemorrhoids were found [Method Found]. The hemorrhoids were Grade I (internal hemorrhoids that do not prolapse). Impression: - The entire examined colon is normal on direct and retroflexion views. - Non-bleeding internal hemorrhoids. - No specimens collected. Recommendation: - Discharge patient to home. - Resume previous diet. - Continue present medications. - Repeat colonoscopy in 10 years for screening purposes. - depending on overall health at time of possible repeat Procedure Code(s): --- Professional --- G0121, PT, Colorectal cancer screening; colonoscopy on individual not meeting criteria for high risk Diagnosis Code(s): --- Professional --- Z12.11, Encounter for screening for malignant neoplasm of colon CPT copyright 2021 [employer]. All rights reserved. The codes documented in this report are preliminary and upon hvac r instructor review may be revised to meet current compliance requirements. MD Megan Barry MD 07/25/2024 10:28:45 AM This report has been signed electronically. Number of Addenda: 0 Note Initiated On: 07/25/2024 9:58 AM
--- NOTE | 2024-07-25 10:29 | PCM.POST.ANE ---
Anesthesia: Postop Eval I Current Vital Signs Temperature: 97.6 F Pulse Rate: 72 Blood Pressure: 97/49 Respiratory Rate: 16 Pulse Ox: 99 Oxygen Delivery Method: Room Air Assessment Airway patent: Yes Spontaneous unlabored respirations: Yes Mental status: Asleep nausea: No Vomiting: No Anesthesia Complication: No Fluid Hydration Crystalloid volume administer (ml): 500 Total IV fluid infused: 500 Progress Note Anesthesia document: Postop Eval 1 completed: Yes
--- NOTE | 2024-07-25 11:01 | PCM.POSTANE2 ---
Anesthesia Postop Eval I Sum Postop Eval Completion status Anesthesia document: Postop Eval 1 completed: Yes Anesthesia Postop Eval I Summary Anesthesia Postop Eval I Summary: Anesthesia Postop Eval I: Assessment Summary Airway patent Yes 07/25/24 10:31 [email or web address] Spontaneous unlabored Yes 07/25/24 10:31 [email or web address] respirations Mental status Asleep 07/25/24 10:31 [email or web address] nausea No 07/25/24 10:31 [email or web address] Vomiting No 07/25/24 10:31 [email or web address] Anesthesia Postop Eval I: Fluid Summary Crystalloid volume administer 500 07/25/24 10:31 [email or web address] (ml) Colloids volume administered ( ml) Blood Product volume administered (ml) Total IV fluid infused 500 07/25/24 10:31 [email or web address] Anesthesia Postop Eval I: Summary Notes Anesthesia Complication No 07/25/24 10:31 [email or web address] Anesthesia Complication Comment: Post-operative progress note Anesthesia: Postop Eval II Evaluation Mental status: Awake Pain Level: 0 nausea: No Vomiting: No
== END 2024-07-25 11:16 | disposition home or self-care (01) ==
LOC: EN 07:36 → AC 07:37
PROVIDERS: PCP Family Medicine; Referring Provider Family Medicine; Visit Provider Surgery
PROC: 0DJD8ZZ Inspection of Lower Intestinal Tract, Via Natural or Artificial Opening Endoscopic (ICD-10-PCS; CPT 45378; principal; 2024-07-25 08:55)
DX: Z12.11 Encounter for screening for malignant neoplasm of colon (principal); K64.0 First degree hemorrhoids; Z80.0 Family history of malignant neoplasm of digestive organs
CPT/HCPCS: G0121; J2405

== ENCOUNTER → 2024-10-01 | Outpatient (CLI) | payer MEDICARE, OTHER, SELFPAY ==
--- NOTE | 2024-10-01 13:19 | BI_ITS ---
EXAM: SCRN MAMM (CAD)W/ZACHARY BILAT DATE: 10/01/2024 CLINICAL HISTORY: F, Age 69 y/o , SCREENING--ORDER CHANGE FROM 03/2024 ORDER TECHNIQUE: SCRN MAMM (CAD)W/ZACHARY BILAT COMPARISON: None. Her prior mammogram study was 06/19/2007. That study is no longer available for review. FINDINGS: TISSUE DENSITY: The breasts are heterogeneously dense, which may obscure small masses. Bilateral Breast Mammographic Findings: Benign-appearing round microcalcifications are seen in both breasts. Stable masslike densities are seen in both breasts. Benign-appearing macrocalcifications are seen in both breast. No suspicious masses, suspicious cluster of microcalcifications, architectural distortion or secondary sign of malignancy is identified in either breast. BI/SCRN MAMM (CAD)W/ZACHARY BILAT IMPRESSION: Benign screening mammogram. OVERALL FINAL ASSESSMENT BI-RADS 2: BENIGN RECOMMENDATION: Routine annual follow-up in 1 Year A letter with findings and recommendations will be mailed to the patient. Reading Location: [id number]
== END | disposition home or self-care (01) ==
LOC: OPBI 13:18
PROVIDERS: PCP Family Medicine; Referring Provider Family Medicine; Visit Provider Family Medicine
DX: Z12.31 Encounter for screening mammogram for malignant neoplasm of breast (principal)
CPT/HCPCS: 77063; 77067

== ENCOUNTER 2024-10-18 19:05 | Emergency (ER) | payer OTHER, MEDICARE, SELFPAY ==
[2024-10-18 19:05] VITALS: BP 153/73; PULSE 88; RESP 18; TEMP 36.6; O2SAT 98; BMI 22.3
--- NOTE | 2024-10-18 19:30 | CT_ITS ---
PROCEDURE: BRAIN/HEAD WITHOUT CONTRAST 10/18/2024 REASON FOR EXAM: HEAD INJURY TECHNIQUE: BRAIN/HEAD WITHOUT CONTRAST Coronal and Sagittal reconstruction series were provided. One or more dose reduction techniques were used (e.g., Automated exposure control, adjustment of the mA and/or kV according to patient size, use of iterative reconstruction technique. RADIATION DOSE SUMMARY: CTDlvol: 44 mGy DLP: 812 mGycm FINDINGS: The ventricles are normal in size and midline in position. Punctate hyperdensity within the left frontal lobe favored to represent a chronic calcification. No extra-axial blood or fluid collections. Bilateral basal nucleus chronic mineralization. The paranasal sinuses and mastoid air cells are clear. The calvarial vault and skull base are intact. CT/Brain/Head without Contrast IMPRESSION: Punctate hyperdensity in the left frontal lobe favored to represent a chronic c alcification. Without priors for comparison a tiny hemorrhage can not be excluded. Consider for short interval follow-up CT should be considered if clinically indicated. Reading Location: [id number]
--- NOTE | 2024-10-18 19:35 | RAD_ITS ---
PROCEDURE: KNEE 4 OR MORE VIEWS 10/18/2024 REASON FOR EXAM: PAIN TECHNIQUE: KNEE 4 OR MORE VIEWS Laterality: FINDINGS: No evidence of acute fracture or dislocation. [id number] degenerative changes of the knee. No knee joint effusion. RAD/Knee 4 or More Views IMPRESSION: No acute osseous abnormalities. Reading Location: [id number]
--- NOTE | 2024-10-18 20:09 | ED.VIS.FALL ---
HPI <FIONA Lemus - Last Filed: 10/18/24 20:23> HPI - Fall History of Present Illness Chief Complaint: Fall Narrative Narrative: 61-year-old female without significant medical history presents after he tripped and fell at work at the [employer]. She tripped over a rug and hit her head and right knee on the ground. No LOC. She was able to get up and is ambulatory. She presents with a headache but denies visual changes or nausea or vomiting. She is not on blood thinners. She takes baby aspirin. PFSH <FIONA Lemus - Last Filed: 10/18/24 20:23> PFSH Medical History Wears glasses Post-menopausal Arthritis Restless legs History of IBS Heartburn Non-smoker Family history of colon cancer in father Pain in left acromioclavicular joint Home Medications ?Medication ?Instructions ?Recorded ?Last Taken ?Type aspirin 81 mg tablet,delayed 81 mg PO QDAY PRN pain 04/25/24 Unknown History release (Ecotrin Low Strength) Allergy/AdvReac Type Severity Reaction Status Date / Time Penicillins Allergy Rash Verified 10/18/24 19:06 prednisone AdvReac MUSCLE Verified 10/18/24 19:06 WEAKNESS, BRAIN FOG Family History Father Cancer Colon cancer Mother Cancer Surgical History Hx of right knee surgery Hx of colonoscopy History of appendectomy Hx of hysterectomy Social History household members: none current occupational status: employed Smoking Status: Never smoker alcohol intake: never substance use type: does not use ROS <FIONA Lemus - Last Filed: 10/18/24 20:23> ROS ED ROS Narrative Eyes: Negative for visual change. GI: Negative for nausea, vomiting. Neuro: Positive for headache. EXAM <FIONA Lemus - Last Filed: 10/18/24 20:23> Physical Exam Narrative Exam Narrative: CONST: Patient sitting in no acute distress. EYES: Normal inspection. HEAD: Small frontal hematoma and abrasion, no deformity or crepitus. No raccoon eyes Garnica sign, no nasal septal hematoma epistaxes, no hemotympanum, no CSF otorrhea or rhinorrhea. NECK: Normal inspection. No midline spinal tenderness, no step off or crepitus. RESP: No respiratory distress, CTAB. CVS: Regular rate and rhythm, no murmur, no gallop. SKIN: Color normal, no rash, warm, dry, intact. EXTREMITIES: Upper extremities nontender, 2+ radial pulses. Slight swelling and tenderness over the right patella with a small skin abrasion. Full range of motion, no laxity with anterior posterior varus or valgus testing. No other bony tenderness of the lower extremities. 5/5 strength in dorsiflexion plantarflexion, normal sensation, 2+ DP pulses. NEURO: Alert and answering questions appropriately. PSYCH: Normal affect. Const Vital Signs: 10/18/24 19:05 10/18/24 19:23 10/18/24 20:20 Temperature 98 F Temperature Source Temporal Pulse Rate 88 83 Respiratory Rate 18 11 L Respiratory Effort Normal Non-Labored Respiratory Depth Normal Respiratory Pattern Normal Blood Pressure 153/73 H 168/86 H Blood Pressure Mean 99 113 Pulse Ox 98 95 Oxygen Delivery Method Room Air Room Air Room Air <Dr. Aba Bland MD - Last Filed: 10/18/24 20:38> Physical Exam Const Vital Signs: 10/18/24 19:05 10/18/24 19:23 10/18/24 20:20 Temperature 98 F Temperature Source Temporal Pulse Rate 88 83 Respiratory Rate 18 11 L Respiratory Effort Normal Non-Labored Respiratory Depth Normal Respiratory Pattern Normal Blood Pressure 153/73 H 168/86 H Blood Pressure Mean 99 113 Pulse Ox 98 95 Oxygen Delivery Method Room Air Room Air Room Air MDM <FIONA Lemus - Last Filed: 10/18/24 20:23> [facility] Narrative Medical decision making narrative: Differential includes but not limited to closed head injury, skull fracture, intracranial hemorrhage Consults: Discussion with radiologist, [facility] ED physician 69-year-old female tripped on a rug and had a ground-level fall with closed head injury without LOC and right knee injury. She takes aspirin 81 mg, no blood thinners. She is awake alert no distress. Vital stable. GCS 15. She has a small frontal hematoma and abrasion but no new deformity or crepitus or signs of basilar skull fracture. She is also tender and swollen over the right patella. Knee joint is stable and extension intact. She has no other injuries and has a nonfocal neurological exam. Due to her age I ordered a CT scan of the brain. The radiologist called and said there is a punctate hyperdensity in the left frontal lobe which she thought is a chronic calcification but without a prior for comparison and cannot rule out a small hemorrhage. Patient states she has never had a CAT scan of her brain before so I cannot corroborate with outside records. Since this is a potential bleed she needs transferred and prefers [facility] in [place]. I spoke with the transfer line I am Dr. Ryder Steel in the ED, report for ED to ED transfer and ground transport is being arranged. 30 minutes of critical care time was consumed by evaluation of the patient, discussion with multiple consultants for treatment and planning. History & Record Review Discussion w/independent historian: Patient Radiography Diagnostic Testing: Clinical Impression(s) from Imaging Studies Brain CT 10/18/24 19:30 IMPRESSION: Punctate hyperdensity in the left frontal lobe favored to represent a chronic calcification. Without priors for comparison a tiny hemorrhage can not be excluded. Consider for short interval follow-up CT should be considered if clinically indicated. Reading Location: [facility] Knee X-Ray 10/18/24 19:35 IMPRESSION: No acute osseous abnormalities. Reading Location: [facility] ED attending interpretation of right knee shows no fracture or dislocation. <Dr. Aba Bland MD - Last Filed: 10/18/24 20:38> MDM Radiography Diagnostic Testing: Clinical Impression(s) from Imaging Studies Brain CT 10/18/24 19:30 IMPRESSION: Punctate hyperdensity in the left frontal lobe favored to represent a chronic calcification. Without priors for comparison a tiny hemorrhage can not be excluded. Consider for short interval follow-up CT should be considered if clinically indicated. Reading Location: [facility] Knee X-Ray 10/18/24 19:35 IMPRESSION: No acute osseous abnormalities. Reading Location: [id number] Management Discussion w/another healthcare provider: Supply Chain Tech Treatment and Re-Evaluation Narrative: I have personally performed a face to face assessment of the patient and have reviewed the MIKEY Note. I performed a substantive portion of the visit including all aspects of the following. My trujillo findings include: History is accidental trip and fall over a rug at work, hitting her forehead and her right knee. Ambulatory. No loss of consciousness. Mild frontal headache. No nausea or vomiting. No focal neurologic symptoms. Exam is small abrasion and hematoma frontal forehead without crepitance or depression. No Garnica sign, no raccoon eyes, no CSF otorhinorrhea, no hemotympanum. GCS 15. Abrasion over right knee with mild swelling no bony tenderness full range of motion all ligaments stable with short endpoint. Medical Decison Making CT head obtained and 4 view x-ray series of the right knee. The x-rays to my interpretation are negative radiology in agreement. On head CT, radiology interprets showing some frontal calcifications versus hemorrhage. I viewed these images and I agree, it is actually in the area where the patient had the injury. She has no prior CTs here and she states she has never had a CT of her head at any other hospital in the past. For this reason I feel it is best to transfer her for observation and repeat scan to a trauma center. Other additions or changes: [None] Discharge Plan Triage Chief Complaint: Fall ED Midlevel Provider: Hailee Alicia ED Provider: Aba Bland Dx/Rx/DC Orders Clinical Impression: Fall, Closed head injury without loss of consciousness, Contusion of right knee, Traumatic intracranial hemorrhage Prescriptions: No Action aspirin [Ecotrin Low Strength] 81 mg tablet,delayed release (DR/EC) 81 mg PO QDAY PRN (Reason: pain) Primary Care Provider: Dimitris Bethea Referrals: Dimitris Bethea MD [Primary Care Provider] - Print Language: Ivorian Disposition Disposition: Acute Care Hospital Discharge Location: [facility]
[2024-10-18 20:20] VITALS: BP 168/86; PULSE 83; RESP 11; O2SAT 95
[2024-10-18 20:35] VITALS: BP 186/93; PULSE 83; RESP 16; TEMP 36.2; O2SAT 97
[2024-10-18 20:56] LABS: Hematocrit 40.5 % (37-47); Hemoglobin 13.8 g/dL (12.0-15.0); Immature Granulocytes Count 0.020 X10^3/uL (0.0-0.0); Mean Corp Hgb Conc 34.1 g/dL (32-36); Mean Corpuscular Volume 87.5 fL (81-99); Mean Platelet Vol. 10.7 fl (6.2-12.0); NRBC Flagged by Analyzer 0 % (0-5); Platelet Count 231 K/mm3 (150-450); RBC Distribution Width CV 13.2 % (11.6-14.6); RBC Distribution Width SD 42.1 fl (35.1-43.9); Red Blood Count 4.63 M/mm3 (4.2-5.4); White Blood Count 7.2 K/mm3 (4.4-11.0)
--- NOTE | 2024-10-18 21:00 | ED.RN ---
This RN called report to Radha CHRISTIANSON at [facility] at [phone].
[2024-10-18 21:07] LABS: Prothrombin Time (Protime)PT. 12.6 SECONDS (11.7-14.9)
[2024-10-18 21:08] LABS: Partial Thromboplast Time 27.5 Seconds (24.1-36.2)
[2024-10-18 21:55] LABS: Anion Gap 14 (5-15); BUN 19 mg/dL (4-19); BUN/Creat Ratio 17.7 RATIO (10-20); Calcium,Total 9.2 mg/dL (7.6-11.0); Carbon Dioxide 23.6 mmol/L (21.0-32.0); Chloride 102 mmol/L (98-108); Estimated Creatinine Clearance 40.86 ml/min (50-250); Glucose 124 mg/dL (70-99); Potassium 3.7 mmol/L (3.3-5.1)
== END 2024-10-18 21:00 | disposition short-term general hospital (02) ==
PROVIDERS: Physician Assistant; Emergency Provider Emergency Medicine; PCP Family Medicine; Visit Provider Emergency Medicine
DX: S06.300A Unspecified focal traumatic brain injury without loss of consciousness, initial encounter (principal); S80.01XA Contusion of right knee, initial encounter; Y99.0 Civilian activity done for income or pay; W01.0XXA Fall on same level from slipping, tripping and stumbling without subsequent striking against object, initial encounter; Z79.82 Long term (current) use of aspirin
CPT/HCPCS: 70450; 73564; 80048; 85025; 85610; 85730; 99284; A4216